=== PATIENT | female | born 1995 | race Two or more races ===

== ENCOUNTER 2017-08-03 20:14 | Emergency (ER) | payer OTHER ==
[~2017-08-03] VITALS: Ht 157.5 cm; Wt 48.3 kg
[2017-08-03 23:08] VITALS: BP 131/78
== END 2017-08-03 23:11 | disposition home or self-care (01) ==
LOC: EME 20:14
DX: T40.1X1A Poisoning by heroin, accidental (unintentional), initial encounter (principal); F17.200 Nicotine dependence, unspecified, uncomplicated
CPT/HCPCS: 99281; 99284